=== PATIENT | male | born 1985 | race Caucasian/White ===

== ENCOUNTER 2018-08-22 20:16 | Emergency (ER) | payer BC ==
[~2018-08-22] VITALS: Ht 175.3 cm; Wt 88.5 kg
[2018-08-22] MEDS ORDERED: IBUPROFEN 600 MG TAB PO NR (20:31)
[2018-08-22] MEDS ORDERED: ACETAMINOPHEN/CODEINE ELIX 120-12 MG/5 ML UDC PO NR (20:45)
[2018-08-22] MEDS ORDERED: DEXAMETHASONE SOD PHOS 10 MG/1 ML VIAL INJ NR (20:45)
--- NOTE | 2018-08-22 21:09 | Diagnostic Imaging Report ---
EXAMINATION: PA and lateral views of the chest. COMPARISON: None CLINICAL HISTORY: Flulike symptoms DISCUSSION: Lines/tubes: None. Lungs: The lungs are well inflated and clear. There is no evidence of pneumonia or pulmonary edema. Pleura: There is no pleural effusion or pneumothorax. Heart and mediastinum: Cardiomediastinal silhouette is unremarkable. Pulmonary vasculature is normal. Bones and soft tissues: No acute bony abnormalities. IMPRESSION: No acute cardiopulmonary abnormalities. Signed by: Dr. Volodymyr Flaherty M.D. on 08/22/2018 9:06 PM
[2018-08-22 21:42] VITALS: BP 118/86
== END 2018-08-22 21:43 | disposition home or self-care (01) ==
LOC: ER 20:16
DX: J20.9 Acute bronchitis, unspecified (principal)
CPT/HCPCS: 71046; 99283; J1100